=== PATIENT | male | born 1995 | race Hispanic/Latino ===

== ENCOUNTER 2018-02-27 21:22 | Emergency (ER) | payer BC, SELFPAY ==
[2018-02-27 21:28] VITALS: BP 144/85; PULSE 85; RESP 18; TEMP 36.6; O2SAT 100
--- NOTE | 2018-02-27 21:32 | DI.RAD.S_ITS ---
PROCEDURE: XR ANKLE LT MIN 3V INDICATIONS: injury status post fall TECHNIQUE: 3 views of the ankle were acquired. COMPARISON: None. FINDINGS: Bones: No fractures or dislocations. Ankle mortise is normally aligned. No suspicious bony lesions. Soft tissues: No tibiotalar joint effusion. Achilles tendon appears normal. Medial soft tissue swelling is noted and ligamentous injury cannot be excluded. IMPRESSION: No fracture. No osseous lesion. If there are persistent symptoms or clinical suspicion for pathology, then repeat radiographs or advanced imaging (CT, MRI or bone scan) should be considered for further evaluation. Dictated by: Christianne Franks MD, PhD on 02/27/2018 at 21:46 Approved by: Christianne Franks MD, PhD on 02/27/2018 at 21:48
--- NOTE | 2018-02-27 23:41 | ED_ITS ---
HPI - Extremity Injury (Lower) General Chief Complaint: Extremity Injury, Lower Stated Complaint: left leg injury Time Seen by Provider: 02/27/18 21:44 Source: patient Mode of arrival: wheelchair Limitations: no limitations History of Present Illness HPI Narrative: Patient is a 22-year-old male presents with left ankle pain and swelling. He is slipped while running and heard a pop. Pain and swelling are medial pain and swelling unable to weightbear. No numbness or tingling. MD complaint: ankle injury Related Data Home Medications Medication Instructions Recorded Confirmed No Known Home Medications 02/27/18 02/27/18 Allergies Allergy/AdvReac Type Severity Reaction Status Date / Time No Known Drug Allergies Allergy Verified 02/27/18 21:30 Review of Systems Review of Systems GENERAL: Denies chills,fever HEENT: Denies throat pain RESPIRATORY: Denies dyspnea, cough, wheezing CARDIOVASCULAR: Denies chest pain, palpitations GASTROINTESTINAL: Denies nausea, vomiting MUSCULOSKELETAL: See HPI SKIN: No rash, no laceration, no pruritus NEUROLOGIC: Denies weakness, dizziness, headache, numbness 8 point review of systems is negative except for those stated above and [facility]PI [facility] Social History Smoking Status: Never smoker Exam Initial Vital Signs Initial Vital Signs: Vital Signs Temperature 97.9 F 02/27/18 21:28 Pulse Rate 85 02/27/18 21:28 Respiratory Rate 18 02/27/18 21:28 Blood Pressure 144/85 H 02/27/18 21:28 Pulse Oximetry 100 02/27/18 21:28 GENERAL: Well-appearing, well-nourished and in no acute distress. CARDIOVASCULAR: peripheral pulses in tact, cap refill <2 sec RESPIRATORY: No respiratory distress, speaks in full sentences without difficulty EXTREMITIES: Normal range of motion, no clubbing or edema. Neurovascularly intact -left ankle swelling medially no gross bony deformity distal pedal pulse intact no erythema no contusion the Achilles tendon intact NEUROLOGICAL: Cranial nerves II through XII grossly intact. Normal gait and speech. SKIN: Warm, dry, no petechiae, no rashes or lesions. Course Orders Ordered: ED Orders 02/27/18 21:32 XR ankle LT min 3V Stat 02/27/18 23:46 XR tibia fibula LT 2V Stat Discontinued Medications Ibuprofen (Advil) 800 mg PO NOW ONE Stop: 02/27/18 23:40 Last Admin: 02/27/18 23:43 Dose: 800 mg Vital Signs - 8 hr 02/27/18 21:28 02/28/18 00:29 Temperature 97.9 F Pulse Rate 85 82 Respiratory Rate 18 16 Blood Pressure 144/85 H 138/82 H Pulse Oximetry 100 100 MDM - Extremity Injury (Lower) Imaging Data Left ankle x-ray: Radiologist's impression: PROCEDURE: XR ANKLE LT MIN 3V INDICATIONS: injury status post fall TECHNIQUE: 3 views of the ankle were acquired. COMPARISON: None. FINDINGS: Bones: No fractures or dislocations. Ankle mortise is normally aligned. No suspicious bony lesions. Soft tissues: No tibiotalar joint effusion. Achilles tendon appears normal. Medial soft tissue swelling is noted and ligamentous injury cannot be excluded. IMPRESSION: No fracture. No osseous lesion. If there are persistent symptoms or clinical suspicion for pathology, then repeat radiographs or advanced imaging (CT, MRI or bone scan) should be considered for further evaluation. Dictated by: Christianne Franks MD, PhD on 02/27/2018 at 21:46 Left tib-fib: Attestation: I personally reviewed and interpreted this imaging study as follows: My impression: No fracture [facility] Narrative Medical decision making narrative: Patient also reporting some pain on the tibia with the move his ankle. Long discussion with family and patient about weight-bearing. They have crutches we have given them instructions and fitted them appropriately. Recommended if no improvement after 2-3 weeks and still having pain at that point he may require an MRI which they would need to see orthopedic or his primary care physician for. At this point I do expect this to heal. He does work in filled stages. He is requesting a few days off. Discharge Plan Departure Patient Disposition: Home, Self-Care Clinical Impression: Left ankle sprain Discharge Date/Time: 02/28/18 00:30 Interventions: ED Discharge Assessment Last Done: 02/28/18 00:29 Instructions: Ankle Sprain Activity Restrictions/Additional Instructions: *You have been diagnosed with left ankle sprain *What to do: Increase activity as tolerated, use crutches as needed, ice 20 min at a time, elevate *Continue to take medications as directed -Motrin 800 mg every 8 hr if needed for pain *Follow up with your primary care provider in 2-3 days *Return to ER if you should have numbness, tingling, increasing any new, worsening or concerning symptoms Prescriptions: No Action No Known Home Medications RF: 0 Referrals: [facility] [Provider Group] Stand Alone Forms: Work/School Restrictions
[2018-02-27] MEDS: IBUPROFEN 400 MG TABLET 800 MG PO (23:43)
--- NOTE | 2018-02-27 23:46 | DI.RAD.S_ITS ---
PROCEDURE: XR TIBIA FIBULA RT 2V INDICATIONS: pain in ankle and bautista after twist TECHNIQUE: 2 views of the tibia and fibula were acquired. COMPARISON: None. FINDINGS: Bones: No fractures or dislocations. No suspicious bony lesions. Soft tissues: No suspicious soft tissue calcifications or masses. IMPRESSION: No acute radiographic findings. If pain persists, repeat study in 5-7 days is recommended to exclude occult fracture. Dictated by: Kym Roca M.D. on 02/28/2018 at 8:01 Approved by: Kym Roca M.D. on 02/28/2018 at 8:01
[2018-02-28 00:29] VITALS: BP 138/82; PULSE 82; RESP 16; O2SAT 100
--- NOTE | 2018-02-28 00:29 | PC.NURSE ---
pt brought in own critches. adjusted to fit pt. pt demonstrated proper crutch use.
== END 2018-02-28 00:30 | disposition home or self-care (01) ==
PROVIDERS: Emergency Provider Emergency Medicine
DX: S93.402A Sprain of unspecified ligament of left ankle, initial encounter (principal); W01.0XXA Fall on same level from slipping, tripping and stumbling without subsequent striking against object, initial encounter; Y93.02 Activity, running
CPT/HCPCS: 73590; 73610; 99282; 99283